=== PATIENT | female | born 1960 | race Two or more races ===

== ENCOUNTER 2020-03-07 08:40 | Inpatient (IN) | payer MEDICAID ==
[~2020-03-07] VITALS: Ht 170.2 cm; Wt 74.7 kg
[2020-03-07 09:47] LABS: Basophils # (auto) 0 10 ^3/uL (0-0.2); Basophils % (auto) 0.5 % (0.0-2.0); Eosinophils # (auto) 0 10 ^3/uL (0-0.8); Eosinophils % (auto) 0.6 % (0.0-7.0); Hematocrit 38.2 % (36.0-46.0); Hemoglobin 12.8 g/dL (12.2-16.2); Lymphocytes # (auto) 1.1 10 ^3/uL (0.4-5.4); Lymphocytes % (auto) 21.3 % (10.0-50.0); Mean Corpuscular Hemoglobin 29.5 pg (28.0-32.0); Mean Corpuscular Hgb Conc. 33.5 g/dL (32.0-36.0); Monocytes # (auto) 0.5 10 ^3/uL (0-1.3); Monocytes % (auto) 9.1 % (0.0-12.0); Neutrophils # (auto) 3.4 10 ^3/uL (1.6-8.6); Neutrophils % (auto) 68.5 % (37.0-80.0); Nucleated Red Blood Cells % 0.1 %; Platelet Count (auto) 166 10^3/uL (140-450); Red Blood Cells 4.34 10^6/uL (4.0-5.20); Red Cell Distribution Width 13.3 % (11.8-14.3)
[2020-03-07 10:13] LABS: Albumin 3.9 g/dL (3.4-5.0); Anion Gap 5 (5-15); Blood Urea Nitrogen 9 mg/dL (7-18); Calcium 8.5 mg/dL (8.5-10.1); Carbon Dioxide 25 mmol/L (21-32); Chloride 99 mmol/L (98-107); Glucose 101 mg/dL (74-106); Potassium 4.1 mmol/L (3.5-5.1); Sodium 129 mmol/L (136-145)
[2020-03-07 10:18] LABS: Alanine Aminotransferase 36 U/L (13-56); Alkaline Phosphatase 79 U/L (45-117); Aspartate Aminotransferase 23 U/L (15-37); BUN/Creatinine Ratio 13.4; Bilirubin, Total 0.4 mg/dL (0.2-1.0); GFR African American 117 mL/min; GFR Non-African American 96 mL/min; Total Protein 6.9 g/dL (6.4-8.2)
[2020-03-07 11:46] LABS: Urine Bacteria NONE SEEN /hpf (None Seen); Urine Blood Negative /uL (Negative); Urine Specific Gravity 1.006 (1.001-1.035); Urine WBC <1 /hpf (0 - 5)
[2020-03-07] MEDS ORDERED: ONDANSETRON HCL 4 MG/2 ML VIAL IV ONE (12:45)
[2020-03-07] MEDS ORDERED: MORPHINE SULF INJ 2 MG/ML SYRINGE 1ML IV ONE (12:45)
[2020-03-07] MEDS ORDERED: MORPHINE SULF INJ 2 MG/ML SYRINGE 1ML IV PRN (13:15)
[2020-03-07] MEDS ORDERED: ONDANSETRON HCL 4 MG/2 ML VIAL IV PRN (13:15)
[2020-03-07] MEDS ORDERED: HYDROcodone-ACET 10/325MG TAB PO PRN (13:15)
[2020-03-07] MEDS ORDERED: NITROGLYCERIN 0.4 MG SL TAB SL PRN (13:15)
[2020-03-07] MEDS ORDERED: OMEP-260 PO (14:41)
[2020-03-07] MEDS ORDERED: SIMV-8 PO (14:41)
[2020-03-07] MEDS ORDERED: ASPI-498 PO (14:41)
[2020-03-07 17:00] VITALS: BP 107/43
[2020-03-07 18:01] VITALS: BP 107/43
[2020-03-07] MEDS: MORPHINE SULF INJ 2 MG/ML SYRINGE 1ML IV PRN ×2 (18:42→23:27)
--- NOTE | 2020-03-07 19:40 | NUR ---
Opening Shift Note Assumed patient care from Day Shift RN. Patient is AOx4, no s/s of distress or SOB. Patient has no pain at the moment. POC discussed with patient. Bed locked in lowest position w/ HOB at 30 degrees and call light within reach. Spoke to patient about using call light for assist to bathroom or ambulation. Patient verbally agreed to understanding. Will continue to monitor.
[2020-03-07 20:00] VITALS: BP 101/71
[2020-03-07 22:00] VITALS: BP 101/71
[2020-03-07] MEDS: DOCUSATE SOD 100 MG CAP PO SCH (22:56)
--- NOTE | 2020-03-07 23:27 | NUR ---
Patient Complains of Pain in Right Arm Patient given pain medication as prescribed. Will continue to monitor.
[2020-03-08 05:00] VITALS: BP 104/67
[2020-03-08 06:00] LABS: Basophils # (auto) 0 10 ^3/uL (0-0.2); Basophils % (auto) 0.6 % (0.0-2.0); Eosinophils # (auto) 0.2 10 ^3/uL (0-0.8); Eosinophils % (auto) 3.6 % (0.0-7.0); Hematocrit 38.6 % (36.0-46.0); Hemoglobin 12.5 g/dL (12.2-16.2); Lymphocytes # (auto) 1.3 10 ^3/uL (0.4-5.4); Lymphocytes % (auto) 20.8 % (10.0-50.0); Mean Corpuscular Hemoglobin 29.3 pg (28.0-32.0); Mean Corpuscular Hgb Conc. 32.5 g/dL (32.0-36.0); Mean Corpuscular Volume 90.3 fL (80.0-100.0); Monocytes # (auto) 0.6 10 ^3/uL (0-1.3); Monocytes % (auto) 10.4 % (0.0-12.0); Neutrophils % (auto) 64.6 % (37.0-80.0); Nucleated Red Blood Cells % 0.1 %; Platelet Count (auto) 153 10^3/uL (140-450); Red Blood Cells 4.27 10^6/uL (4.0-5.20); Red Cell Distribution Width 13.6 % (11.8-14.3); White Blood Cell 6.2 10^3/uL (4.4-10.8)
[2020-03-08 06:28] LABS: Albumin 3.5 g/dL (3.4-5.0); BUN/Creatinine Ratio 13.1; Bilirubin, Total 0.4 mg/dL (0.2-1.0); Calcium 8.3 mg/dL (8.5-10.1); Total Protein 6.8 g/dL (6.4-8.2)
--- NOTE | 2020-03-08 07:00 | NUR ---
Endorsed Care to Kelly WHYTE.
--- NOTE | 2020-03-08 07:15 | NUR ---
Opening Shift Note: Assumed care of patient, awake and alert. No S/S of distress/SOB. Bed in lowest locked position, side rails, up x 2, call light within reach. Patient instructed on POC and to call for assistance PRN, will continue to monitor for changes Q1hr and PRN.
[2020-03-08 09:00] VITALS: BP 119/72
[2020-03-08] MEDS: DOCUSATE SOD 100 MG CAP PO SCH ×2 (10:17→21:13)
[2020-03-08] MEDS: PANTOPRAZOLE 40 MG TAB PO SCH (10:17)
[2020-03-08] MEDS: MORPHINE SULF INJ 2 MG/ML SYRINGE 1ML IV PRN ×2 (10:17→18:11)
[2020-03-08 13:28] VITALS: BP 104/66
[2020-03-08 17:22] VITALS: BP 110/71
--- NOTE | 2020-03-08 18:45 | NUR ---
CLOSING NOTE: Patient resting in bed. No S/S of distress at this time. Care endorsed to NOC RN.
--- NOTE | 2020-03-08 19:22 | NUR ---
Opening Shift Note: Assumed care of patient, awake and alert. No S/S of distress/SOB. Bed in lowest locked position, side rails, up x 2, call light within reach. Patient has no pain at this time. Patient instructed on POC and to call for assistance PRN, will continue to monitor for changes Q1hr and PRN.
[2020-03-08 22:00] VITALS: BP 113/67
--- NOTE | 2020-03-09 02:21 | NUR ---
Patent Rounding Patient is asleep chest evenly rising, no sob or distress noted. call light within reach, will continue to monitor.
[2020-03-09] MEDS: MORPHINE SULF INJ 2 MG/ML SYRINGE 1ML IV PRN (05:04)
--- NOTE | 2020-03-09 05:04 | NUR ---
Pain Patient states pain 8/10 on right fractured arm. Medicated with morphine per md orders. Will reassess, Call light within reach. Will continue to monitor.
[2020-03-09 06:00] VITALS: BP 105/65
[2020-03-09 06:10] LABS: Basophils # (auto) 0 10 ^3/uL (0-0.2); Basophils % (auto) 0.5 % (0.0-2.0); Eosinophils # (auto) 0.3 10 ^3/uL (0-0.8); Eosinophils % (auto) 4.7 % (0.0-7.0); Hematocrit 39.3 % (36.0-46.0); Lymphocytes # (auto) 1.6 10 ^3/uL (0.4-5.4); Lymphocytes % (auto) 23.1 % (10.0-50.0); Mean Corpuscular Hemoglobin 29.2 pg (28.0-32.0); Mean Corpuscular Volume 88.5 fL (80.0-100.0); Monocytes # (auto) 0.7 10 ^3/uL (0-1.3); Monocytes % (auto) 10.1 % (0.0-12.0); Neutrophils # (auto) 4.2 10 ^3/uL (1.6-8.6); Neutrophils % (auto) 61.6 % (37.0-80.0); Platelet Count (auto) 155 10^3/uL (140-450); Red Blood Cells 4.44 10^6/uL (4.0-5.20); Red Cell Distribution Width 13.6 % (11.8-14.3); White Blood Cell 6.8 10^3/uL (4.4-10.8)
[2020-03-09 06:41] LABS: Albumin 3.5 g/dL (3.4-5.0); BUN/Creatinine Ratio 12.5; Calcium 8.9 mg/dL (8.5-10.1)
[2020-03-09 06:44] LABS: Bilirubin, Total 0.4 mg/dL (0.2-1.0)
--- NOTE | 2020-03-09 06:59 | NUR ---
Closing note Endorsed care to day shift RN no sob or distress noted.
--- NOTE | 2020-03-09 07:05 | NUR ---
Opening Shift Note: Assumed care of patient, awake and alert. No S/S of distress/SOB or pain. Right arm in sling at this time. Bed in lowest locked position, side rails up x 2, call light within reach. Patient instructed on POC and to call for assist PRN, will continue to monitor for changes Q1hr and PRN.
[2020-03-09 09:00] VITALS: BP 107/71
[2020-03-09] MEDS: DOCUSATE SOD 100 MG CAP PO SCH ×2 (10:11→21:33)
[2020-03-09] MEDS: PANTOPRAZOLE 40 MG TAB PO SCH (10:12)
[2020-03-09 13:00] VITALS: BP 119/79
--- NOTE | 2020-03-09 15:27 | NUR ---
Nutrition Assessment Notes Please refer to link for full assessment notes. Est Energy needs: 0453-2705 kcals (23-25 kcal/kgBW) Est Protein needs: 61-76 gms/day (0.8-1.0 gm/kgBW) Will continue to monitor and reassess prn. Addendum: 03/09/20 at [address] Amended: Links added.
[2020-03-09 17:00] VITALS: BP 118/79
--- NOTE | 2020-03-09 18:50 | NUR ---
CLOSING NOTE: Patient resting in bed. No S/S of distress. Care endorsed.
--- NOTE | 2020-03-09 19:30 | NUR ---
Opening Shift Note Assumed care of patient, awake and alert. No S/S of distress/SOB or pain. Instructed on POC and to call for assist PRN, patient verbalized understanding. Safety precaution in place, call light within reach, will continue to monitor for changes Q1hr and PRN.
--- NOTE | 2020-03-09 21:30 | NUR ---
Patient complained of gas pain, paged Dr. Krishnamurthy and received order to give Tums as needed. Acknowledged and carried out
[2020-03-09 22:00] VITALS: BP 118/74
[2020-03-09] MEDS ORDERED: CALCIUM CARB 500 MG CHEW TAB PO PRN (22:00)
[2020-03-10 05:55] VITALS: BP 102/65
[2020-03-10 06:33] LABS: Basophils # (auto) 0 10 ^3/uL (0-0.2); Basophils % (auto) 0.5 % (0.0-2.0); Eosinophils # (auto) 0.3 10 ^3/uL (0-0.8); Hematocrit 38.3 % (36.0-46.0); Hemoglobin 12.8 g/dL (12.2-16.2); Lymphocytes # (auto) 1.3 10 ^3/uL (0.4-5.4); Lymphocytes % (auto) 19.3 % (10.0-50.0); Mean Corpuscular Hemoglobin 29.4 pg (28.0-32.0); Mean Corpuscular Hgb Conc. 33.4 g/dL (32.0-36.0); Mean Corpuscular Volume 88.2 fL (80.0-100.0); Monocytes # (auto) 0.7 10 ^3/uL (0-1.3); Monocytes % (auto) 10.6 % (0.0-12.0); Neutrophils # (auto) 4.3 10 ^3/uL (1.6-8.6); Neutrophils % (auto) 65.6 % (37.0-80.0); Platelet Count (auto) 152 10^3/uL (140-450); Red Blood Cells 4.35 10^6/uL (4.0-5.20); Red Cell Distribution Width 13.3 % (11.8-14.3); White Blood Cell 6.6 10^3/uL (4.4-10.8)
[2020-03-10 06:55] LABS: Albumin 3.6 g/dL (3.4-5.0); Calcium 8.8 mg/dL (8.5-10.1); Potassium 3.9 mmol/L (3.5-5.1)
[2020-03-10 06:59] LABS: BUN/Creatinine Ratio 18.5; Bilirubin, Total 0.4 mg/dL (0.2-1.0); Total Protein 7.1 g/dL (6.4-8.2)
--- NOTE | 2020-03-10 07:10 | NUR ---
Opening Shift Note: Assumed care of patient, awake and alert. No S/S of distress/SOB or pain. Bed in lowest locked position, side rails up x 2, call light within reach. Patient instructed on POC and to call for assist PRN, will continue to monitor for changes Q1hr and PRN.
[2020-03-10] MEDS: PANTOPRAZOLE 40 MG TAB PO SCH (08:53)
[2020-03-10] MEDS: DOCUSATE SOD 100 MG CAP PO SCH (08:53)
[2020-03-10 09:00] VITALS: BP 121/83
[2020-03-10 14:10] VITALS: BP 121/83
--- NOTE | 2020-03-10 15:06 | NUR ---
Discharge instructions given as ordered. Encourage to follow up with PMD as instructed. All questions and concerns addressed. Patient verbalized understanding. Medication reconciliation form completed and copy given to patient. IV removed with catheter intact, pressure dressing applied. Sling in place. Telemetry unit returned to ICU. Patient taken to vehicle via wheelchair with all personal belongings, accompanied by staff and family member. No distress noted at time of departure.
--- NOTE | 2020-03-10 15:14 | NUR ---
Assessment Patient is a 59-year-old female who is alert and oriented. Patient advised me to contact her sister Lacy Ph:). Placed call to Lacy. Per Lacy prior to admission patient lived home with her and functioned with assistance. Per Lacy she helps patient with her ADLs. Lacy informed me she is patient caregiver. Per Lacy patient has a walker for home use. Per Lacy patient primary doctor recommended a wheelchair but patient refuses to use one. Per Lacy patient will return to her prior living arrangement post discharge and she will transport her home. Advised Ef[place]lashon patient has a social service consult for home health service. Informed Lacy clinical information will be faxed to a contracted agency with health plan. Informed Lacy she has a right to participate in all discharge planning. Lacy verbalized understanding discharge plan. Faxed clinical information to [facility] health and [facility]. Per Annemarie with [facility] patient has been accepted and service to start within 24-48hrs upon d/c day. Obtain authorization from [facility] [id number]. Informed ISABELL Mendoza. Addendum: 03/10/20 at 1516 by NICOLETTE RICHARD Amended: Links added.
== END 2020-03-10 15:06 | disposition home health service (06) | DRG 342 ==
LOC: EDBD 08:40 → ER 08:40 → TELE 08:41 → TELE-WESTW 16:40
PROVIDERS: ADMIT Internal Medicine; ATTEND Internal Medicine
DX: S42.214A Unspecified nondisplaced fracture of surgical neck of right humerus, initial encounter for closed fracture (principal); Y93.01 Activity, walking, marching and hiking; E87.1 Hypo-osmolality and hyponatremia; W01.0XXA Fall on same level from slipping, tripping and stumbling without subsequent striking against object, initial encounter; Y92.098 Other place in other non-institutional residence as the place of occurrence of the external cause; Y99.8 Other external cause status
CPT/HCPCS: 36415; 70450; 73030; 73060; 80053; 81001; 84484; 85025; 93005; 96374; 96375; G0378; J2405

== ENCOUNTER 2024-02-14 02:34 | Emergency (ER) | payer MEDICAID ==
[~2024-02-14] VITALS: Ht 160 cm; Wt 63.6 kg
[~2024-02-14 02:34] MED LIST: ASPI-498 PO; OMEP1CAP70 PO; SIMV20TA20 PO
[2024-02-14 03:08] VITALS: BP 130/72; PULSE 76; RESP 18; O2SAT 96
== END 2024-02-14 03:00 | disposition left against medical advice (07) ==
LOC: EDBD 02:34 → ER 02:34
DX: K21.9 Gastro-esophageal reflux disease without esophagitis (principal)

== ENCOUNTER → 2024-12-10 | Day surgery (SDC) | payer MEDICAID ==
[2024-12-04 11:30] LABS: Basophils # (auto) 0 10 ^3/uL (0-0.2); Basophils % (auto) 0.9 % (0.0-2.0); Eosinophils # (auto) 0.1 10 ^3/uL (0-0.8); Eosinophils % (auto) 1.7 % (0.0-7.0); Hematocrit 38.1 % (36.0-46.0); Lymphocytes # (auto) 1.6 10 ^3/uL (0.4-5.4); Lymphocytes % (auto) 34.4 % (10.0-50.0); Mean Corpuscular Hemoglobin 29.4 pg (28.0-32.0); Mean Corpuscular Hgb Conc. 34.1 g/dL (32.0-36.0); Mean Corpuscular Volume 86.4 fL (80.0-100.0); Monocytes # (auto) 0.5 10 ^3/uL (0-1.3); Monocytes % (auto) 11.7 % (0.0-12.0); Neutrophils # (auto) 2.3 10 ^3/uL (1.6-8.6); Neutrophils % (auto) 51.3 % (37.0-80.0); Platelet Count (auto) 165 10^3/uL (140-450); Red Blood Cells 4.41 10^6/uL (4.0-5.20); Red Cell Distribution Width 14.2 % (11.8-14.3); White Blood Cell 4.5 10^3/uL (4.4-10.8)
[2024-12-04 11:52] LABS: INR 1.03 (0.9-1.15); Partial Thromboplastin Time 26.4 SEC (24.5-34.5); Prothrombin Time 10.9 sec (9.3-11.8)
[2024-12-04 11:55] LABS: Alanine Aminotransferase 30 U/L (7-40); Albumin 4.7 g/dL (3.2-4.8); Alkaline Phosphatase 60 U/L (46-116); Anion Gap 5 (5-15); Aspartate Aminotransferase 22 U/L (13-40); BUN/Creatinine Ratio 18.1 (10.0-20.0); Bilirubin, Total 0.6 mg/dL (0.2-1.0); Blood Urea Nitrogen 13 mg/dL (9-23); Calcium 10.1 mg/dL (8.7-10.4); Carbon Dioxide 28 mmol/L (20-31); Chloride 105 mmol/L (98-107); Glucose 96 mg/dL (74-106); Potassium 4.6 mmol/L (3.5-5.1); Sodium 138 mmol/L (136-145); Total Protein 7.2 g/dL (5.7-8.2)
[~2024-12-10] VITALS: Ht 162.6 cm; Wt 72.6 kg
[~2024-12-10] MED LIST changes: +CARB0.5D8 OP; +CHOL1TAB22 PO; +EYEL1PAD EX; +OLOP0.1S7 OP; +ROSU10TA64 PO; -SIMV20TA20 PO
[2024-12-10 13:16] VITALS: PULSE 96; RESP 16; O2SAT 98
[2024-12-10] MEDS: MIDAZOLAM HCL 5 MG/ML-1ML VIAL ONE (13:18)
[2024-12-10] MEDS: diphenhdrAMINE HCL 50 MG/1 ML VL ONE (13:18)
[2024-12-10] MEDS: fentaNYL CITRATE 100 MCG/2 ML VL ONE (13:18)
[2024-12-10 13:35] VITALS: PULSE 83; RESP 14; TEMP 98.6; O2SAT 100
--- NOTE | 2024-12-10 13:41 | DVHOP2 ---
Operative Report DATE OF OPERATION: 12/10/24 PROCEDURE: Diagnostic Colonoscopy. PREOPERATIVE INDICATION: The patient is a 64 -year-old female undergoing colonoscopy for colon cancer screening with change in bowel habits POSTOPERATIVE DIAGNOSES: 1. Mild tortuosity of the colon especially of the mid transverse and hepatic flexure 2. 1+ internal hemorrhoids with hypertrophied anal papilla 3. Otherwise completely normal colonoscopy examination up to the cecum PROCEDURE PERFORMED BY: Oneil Galicia M.D. SCOPE: Olympus videocolonoscope. ASA CLASS: 2. PREOPERATIVE MEDICATIONS: Versed 3 mg, Fentanyl 75 mcg, Benadryl 50 mg PROCEDURE IN DETAIL: After obtaining an informed consent, the patient was placed on left lateral decubitus position. She was then sedated with the above medications. A rectal examination was performed that was normal. The colonoscope was then passed through the anus into the rectosigmoid and through the descending, transverse, and ascending colon up to the cecum with visualization of the appendiceal orifice, base of the cecum and the ileocecal valve. The colonoscope was then withdrawn. No polyps or masses were seen. There was no colitis. There was no clear-cut diverticular disease Patient had [id number] tortuosity of the colon more prominent in the transverse and the hepatic flexure On retroflexion and straight on view the patient had 1+ internal hemorrhoids with a hypertrophied anal papilla The patient tolerated the procedure well without difficulty.. WITHDRAWAL TIME: 6 minutes QUALITY OF THE PREP: [place] Bowel Prep score: 9. COMPLICATIONS : None SPECIMENS: None DISPOSITION: Stable D/C to home PLAN: 1. Repeat colonoscopy in 10 years 2. Resume GI soft diet advance as tolerated 3. Increase fluid and fiber intake 4. Local anorectal hemorrhoidal care 5. Outpatient follow up with me in 4-6 weeks to review results and discuss further management ONEIL GALICIA MD December 10, 2024 13:41
[2024-12-10 14:20] VITALS: BP 111/68; PULSE 84; RESP 12; O2SAT 95
== END | disposition home or self-care (01) ==
LOC: GI 11:17
PROVIDERS: ATTEND Internal Medicine Gastroenterology
DX: K59.00 Constipation, unspecified (principal); Q43.8 Other specified congenital malformations of intestine; K64.0 First degree hemorrhoids; Z86.73 Personal history of transient ischemic attack (TIA), and cerebral infarction without residual deficits; K21.9 Gastro-esophageal reflux disease without esophagitis
CPT/HCPCS: 36415; 45378; 80053; 85025; 85610; 85730; J1200; J2250; J3010; 99152